=== PATIENT | female | born 1965 | race Caucasian/White ===

== ENCOUNTER 2023-09-20 09:12 | Outpatient (AMB) | payer BC, SELFPAY ==
--- NOTE | 2023-09-20 09:16 | AM.OFFWIN_ITS ---
Intake Vital Signs 09/20/23 09:34 Weight 155 lb BP 128/66 Blood Pressure Location Lt brachial Position Sitting Pulse 86 Pulse Source Pulse Oximeter Temp 98.6 F Temp Source Oral Pulse Oximetry (%) 99 Oxygen Delivery Method Room Air Intake Visit Reasons: EST/sore throat/ [id number] Intake Note: Pt stated she was on an airplane in August 21 and about 3-5 days later she started feeling ill with sneezing and coughing. Her primary concern is the sore throat and has stated she's been having some phlegm. Allergies paroxetine [From Paxil] Adverse Reaction (Verified 09/20/23 09:33) panic attack HPI EST/sore throat/ [id number] HPI Details Patient is a 58-year-old female comes to complaining persistent sore throat with postnasal drip for few weeks after starting with cold symptoms about a month ago after a plane flight. She was negative for COVID. She does not report fever chills, nausea vomiting or diarrhea, weakness or myalgias, malaise, dizziness or vertigo, shortness of breath or chest pain, discharge from the ear or hearing changes, severe ear pain, or other significant associated symptoms. Review of Systems Const All systems reviewed & are unremarkable except as noted in HPI and below Physical Exam Vital Signs: Last Vital Signs Temp 98.6 F 09/20/23 09:34 Pulse 86 09/20/23 09:34 BP 128/66 09/20/23 09:34 Pulse Ox 99 09/20/23 09:34 Oxygen Delivery Method Room Air 09/20/23 09:34 Const General: cooperative, no acute distress, alert, awake, Physically active and well groomed; No anxious, diaphoretic, intoxicated appearing, poor hygiene or tired appearing Orientation/consciousness: oriented to person Limitations: no limitations HEENT Head: Yes normal to inspection, Yes normocephalic and Yes atraumatic Ears: hearing grossly normal bilaterally, external ears normal, EAC's normal and TM abnormal (Right more erythematous than left) dull, wth effusion and erythematous General nose exam: Normal external nose present, Normal septum present and Nasal discharge present Face and sinus: Yes normal facial exam, Yes sinuses nontender and Yes face symmetric Mouth: Normal oral and palatal mucosa present, lip normal and tongue normal Throat: Yes abnormal tonsil (mildly erythematous bilaterally), No peritonsillar mass, Yes postnasal drainage, No uvular edema and No cobblestoning Eyes General: appearance normal, both eyes and all related structures Neck Neck: Yes normal visual inspection, Yes full ROM, Yes trachea midline and Yes supple Lymphatic: lymphadenopathy Resp Effort & Inspection: normal respiratory effort, able to speak in complete sentences, no audible wheezes, no cough, no grunting, not labored, no nasal flaring, no retractions and symmetric chest movement Auscultation: clear to auscultation bilaterally, no crackles, no rales, no rhonc hi, no wheezes, lung sounds not diminished and No rub present Cardio Palpation: normal PMI Rate: regular rate Rhythm: regular rhythm Heart sounds: S1 normal heart sound present and S2 normal heart sound present Skin Other: Good color, warm and dry Neuro General: oriented to person Psych Appearance: grossly normal Mental Status: mental status grossly normal Speech and movement: Normal speech and movement present Affect: normal affect Attitude: cooperative Thought process: Normal thought process present Insight: Good insight present (Psych) Judgement: Good judgement present (Psych) Assessment & Plan Assessment & Plan (1) Viral syndrome: Code(s): B34.9 - Viral infection, unspecified (2) Otitis media: Code(s): H66.90 - Otitis media, unspecified, unspecified ear Qualifiers: Chronicity: acute Laterality: bilateral Otitis media type: suppurative Recurrence: non-recurrent Spontaneous tympanic membrane rupture: without spontaneous rupture Qualified Code(s): H66.003 - Acute suppurative otitis media without spontaneous rupture of ear drum, bilateral Plan: Patient is a 58-year-old female with bilateral acute otitis media, 2 weeks out. She has been negative for COVID testing at home. Put her on antibiotics the ear infection, and she can follow up as needed. Medications: New amoxicillin-pot clavulanate 875-125 mg 1 tab PO BID 14 tabs 0RF 7 days Coding Level of Care Code Est Pt Level 4 (42317) Diagnoses Viral syndrome B34.9 Non-recurrent acute suppurative otitis media of both ears without spontaneous rupture of tympanic membranes H66.003 Chronicity: acute Laterality: bilateral Otitis media type: suppurative Recurrence: non-recurrent Spontaneous tympanic membrane rupture: without spontaneous rupture
[2023-09-20 09:34] VITALS: BP 128/66; PULSE 86; TEMP 37; O2SAT 99
== END 2023-09-20 10:18 | disposition home or self-care (01) ==
PROVIDERS: Visit Provider Physician Assistant Medical
DX: B34.9 Viral infection, unspecified (principal); H66.003 Acute suppurative otitis media without spontaneous rupture of ear drum, bilateral
CPT/HCPCS: 99204; 99214